=== PATIENT | male | born 1965 | race Caucasian/White ===

== ENCOUNTER 2023-05-09 09:03 | Emergency (ER) | payer SELFPAY ==
[2023-05-09 09:01] VITALS: PULSE 123; RESP 18; TEMP 36.6; O2SAT 100
[2023-05-09] MEDS: LORazepam INJ (*CRX) 2 MG/ML VIAL (09:16)
[2023-05-09] MEDS: diphenhydrAMINE HCl INJ 50 MG/ML VIAL (09:16)
[2023-05-09] MEDS: HALOPERIDOL LACTATE 5 MG/ML VIAL (09:16)
--- NOTE | 2023-05-09 09:20 | ED.GENADULT ---
HPI - General Adult General Chief complaint: Psychiatric Symptoms <Alex Olguin MD - Last Filed: 05/10/23 18:13> Stated complaint: psych <Alex Olguin MD - Last Filed: 05/10/23 18:13> Time Seen by Provider: 05/09/23 09:04 <Alex Olguin MD - Last Filed: 05/10/23 18:13> History of Present Illness HPI narrative: 58-year-old male presented emergency department by EMS for evaluation of altered mental status. Patient was on a [employer] bus when he became extremely agitated and police needed to be involved. Patient was paranoid and delusional and stating that people were coming out of the ceiling attempting to kill him. <Alex Olguin MD - Last Filed: 05/10/23 18:13> Related Data Allergies/adverse reactions: Allergies Allergy/AdvReac Type Severity Reaction Status Date / Time Unable to Assess Allergy Verified 05/09/23 09:50 <Alex Olguin MD - Last Filed: 05/10/23 18:13> Review of Systems Review of Systems: All systems reviewed & are unremarkable except as noted in HPI and below <Alex Olguin MD - Last Filed: 05/10/23 18:13> PMFSH Social History Social History: Social History Substance use type: unknown <Alex Olguin MD - Last Filed: 05/10/23 18:13> Exam Narrative: APPEARANCE: Well appearing, no pain, no distress, well-nourished. HEAD: normocephalic, atraumatic. EYES: PERRLA/EOMI, conjunctivae clear. NOSE: Normal no drainage EARS:TMS clear with good light reflex. THROAT: Pharynx clear, no exudate. NECK: Supple. No adenopathy, no masses. RESPIRATORY: Airway patent, respirations nonlabored. Clear to auscultation bilaterally, no rales, rhonchi, wheezing. CARDIOVASCULAR: Regular rate and rhythm without murmurs rubs or gallops. ABDOMINAL: Soft, nontender, nondistended, normal bowel sounds, reproducible abdominal wall hernia MUSCULOSKELETAL: Moves all extremities. Strength/ROM intact, No edema, No calf tenderness. NEURO: Alert. Cranial nerves II through XII intact. Good gait. Good coordination SKIN: Warm, dry. Normal Color PSYCHIATRIC: Hallucinating and delusional and highly agitated upon arrival <Alex Olguin MD - Last Filed: 05/10/23 18:13> Course Course Emergency Course: 58-year-old male coming in to the emergency department for evaluation of increased agitation paranoid behavior. Upon arrival to the ED patient needed to be both chemically and physically restrained. I was present during initial evaluation at approximately 9:10 AM and did order IM Haldol Ativan and Benadryl. Hard restraints were also ordered to prevent patient from harming himself or staff. On reevaluation patient is more alert and appropriate. Patient denies any complaints at this time. Patient states he did use methamphetamine last night. At this time patient is medically cleared and crisis counselor is being called. <Alex Olguin MD - Last Filed: 05/10/23 18:13> 58-year-old male coming in to the emergency department for evaluation of increased agitation paranoid behavior. Upon arrival to the ED patient needed to be both chemically and physically restrained. I was present during initial evaluation at approximately 9:10 AM and did order IM Haldol Ativan and Benadryl. Hard restraints were also ordered to prevent patient from harming himself or staff. On reevaluation patient is more alert and appropriate. Patient denies any complaints at this time. Patient states he did use methamphetamine last night. At this time patient is medically cleared and crisis counselor is being called. [id number]: patient was signed out to me pending psych eval. Patient was evaluated by crisis Center and they believe his behavior was likely due to his amphetamine use. This time he is not suicidal homicidal or danger to himself or others. Patient has been discharged. <Deo De La Fuente MD - Last Filed: 05/09/23 22:50> Vital Signs Vital signs: Vital Signs Temperature 97.8 F 07
--- NOTE | 2023-05-09 09:23 | ECG_ITS ---
Measurements Intervals Happy Rate: 93 P: 76 NH: 169 QRS: 79 QRSD: 94 T: 76 QT: 357 QTc: 445 Interpretive Statements SINUS RHYTHM BASELINE ARTIFACT- I, II, III, AVR, AVL, AVF NORMAL ECG NO PREVIOUS ECG AVAILABLE FOR COMPARISON Electronically Signed On 05-09-2023 10:21:58 CDT by Sergey Cee D.O.
[2023-05-09] MEDS: LORazepam INJ (*CRX) 2 MG/ML VIAL IM (09:30)
[2023-05-09 09:50] LABS: Basophils Percent Auto 0.2 % (0.2-1.2); Hematocrit 34.6 % (42.0-52.0); Hemoglobin 10.8 g/dL (14.0-18.0); Immature Granulocyte Absolute 0.06 K/mm3 (0.00-0.031); Immature Granulocyte Percent A 0.5 % (0-0.5); Lymphocytes Absolute Auto 3.08 K/mm3 (0.9-3.2); Lymphocytes Percent Auto 24.6 % (18.3-44.2); Mean Corpuscular HGB Conc 31.2 g/dl (32-36); Mean Corpuscular Hemoglobin 25.4 pg (26-34); Mean Corpuscular Volume 81.2 fl (80-100); Mean Platelet Volume 10.7 fl (7.4-10.4); Monocytes Absolute Auto 0.8 K/mm3 (0.1-0.6); Monocytes Percent Auto 6.2 % (2.6-8.5); Neutrophils Absolute Auto 8.6 K/mm3 (1.3-6.7); Neutrophils Percent Auto 68.5 % (45.5-73.1); Platelet Count Result 170 k/mm3 (150-375); Red Blood Count 4.26 M/mm3 (4.6-6.20); Red Cell Distribution Width 15.9 % (11.5-14.5); White Blood Count 12.5 K/mm3 (4.5-10.0)
[2023-05-09] MEDS: Please add drug allergy info to patient profile. 1 EACH XX (09:51)
[2023-05-09 10:12] LABS: Acetaminophen < 10 ug/mL (10-30); Ethanol < 10 mg/dL (<10); Salicylate < 1.0 mg/dL (2-20)
[2023-05-09 10:19] VITALS: BP 129/88; PULSE 90; RESP 18; O2SAT 93
[2023-05-09 10:19] LABS: Alanine Aminotransferase 55 U/L (6-50); Albumin Level 4.4 g/dL (3.5-5.1); Alkaline Phosphatase 53 U/L (38-126); Anion Gap 12 mmol/L (8-16); Aspartate Amino Transferase 80 U/L (17-59); Bilirubin,Total 0.8 mg/dL (0.2-1.3); Blood Urea Nitrogen 10 mg/dL (9-20); Calcium 9.1 mg/dL (8.4-10.2); Carbon Dioxide 18 mmol/L (22-30); Chloride 105 mmol/L (98-107); Estimated CRCL calculation 63 ml/min; Estimated Glomerular Filt Rate > 60; Glucose 139 mg/dL (65-110); Magnesium 2.1 mg/dL (1.6-2.3); Sodium 135 mmol/L (137-145)
[2023-05-09 11:07] LABS: Influenza A QL RT-PCR Negative (Negative); Influenza B QL RT-PCR Negative (Negative); RSV RNA, RT-PCR Negative (Negative); SARS-CoV-2 RNA PCR Negative (Negative)
[2023-05-09 11:07] LABS: Appearance Urine Clear (Clear); Bacteria Urine None Seen /hpf; Bilirubin Urine Negative (Negative); Blood Urine Negative (Negative); Color Urine Yellow (Yellow); Glucose Urine UA Trace mg/dL (Negative); Ketones Urine Negative (Negative); Leukocyte Esterase Ur Negative LEU/UL (Negative); Need Manual Microscopic Reviewed; Nitrate Urine Negative (Negative); Protein Urine 1+ mg/dL (Negative); RBC Urine 0-2 /hpf (0-2); Specific Grav Ur 1.018 (1.001-1.035); Spermatozoa Urine Present; Squamous Epithelial Cell Urine None seen /hpf (Few); WBC Urine 0-5 /hpf
[2023-05-09 11:10] LABS: Add Urine Microscopic? YES
[2023-05-09 11:27] LABS: Barbiturate Screen Urine Negative (Negative); Benzodiazepines Screen Urine Negative (Negative)
[2023-05-09 11:40] LABS: Cannabinoid Screen Urine Negative (Negative); Cocaine Screen Urine Negative (Negative); Methadone Screen Urine Negative (Negative); Opiate Screen Urine Negative (Negative); Phencyclidine Screen Urine Negative (Negative)
[2023-05-09 12:02] LABS: Amphetamine Screen Urine Positive (Negative)
[2023-05-09 12:10] VITALS: BP 132/76; PULSE 69; RESP 20; O2SAT 90
[2023-05-09 12:15] VITALS: O2SAT 99
--- NOTE | 2023-05-09 23:12 | PC.NURSE ---
Crisis evaluated pt and states he does not meet criteria for placement. pt given multiple resources. Dr. De La Fuente agreed with discharge. pt ambulated with belongings to waiting area in stable condition.
== END 2023-05-09 23:16 | disposition home or self-care (01) ==
PROVIDERS: Emergency Provider Emergency Medicine
DX: F15.10 Other stimulant abuse, uncomplicated (principal); Z20.822 Contact with and (suspected) exposure to COVID-19
CPT/HCPCS: 36415; 80053; 80307; 81001; 81003; 83735; 84443; 85025; 87637; 93005; 96372; 96374; 96375; 99284; J1200; J1630; J2060